=== PATIENT | female | born 1960 | race Two or more races ===

== ENCOUNTER 2018-09-24 00:46 | Emergency (ER) | payer OTHER ==
[~2018-09-24] VITALS: Ht 167.6 cm; Wt 63.5 kg
== END 2018-09-24 06:12 | disposition home or self-care (01) ==
LOC: ER 00:46
DX: R55 Syncope and collapse (principal)

== ENCOUNTER 2018-10-02 09:08 | Outpatient (CLI) | payer OTHER | END 2018-10-02 09:42 | disposition home or self-care (01) | LOC: MRI 09:08 | DX: C71.9 Malignant neoplasm of brain, unspecified (principal); I67.89 Other cerebrovascular disease | CPT/HCPCS: 70553 ==

== ENCOUNTER 2021-09-14 09:47 | Outpatient (CLI) | payer OTHER | END 2021-09-14 09:48 | disposition home or self-care (01) | LOC: MRI 09:47 | PROVIDERS: ATTEND Otolaryngology | DX: M54.2 Cervicalgia (principal) | CPT/HCPCS: 72141 ==

== ENCOUNTER 2022-02-27 13:31 | Outpatient (CLI) | payer OTHER | END 2022-02-27 13:45 | disposition home or self-care (01) | LOC: LAB 13:31 | PROVIDERS: ATTEND Dermatology | DX: D51.3 Other dietary vitamin B12 deficiency anemia (principal); I10 Essential (primary) hypertension; E06.3 Autoimmune thyroiditis ==

== ENCOUNTER 2022-10-09 11:11 | Outpatient (CLI) | payer OTHER | END 2022-10-09 11:44 | disposition home or self-care (01) | LOC: LAB 11:11 | PROVIDERS: ATTEND Internal Medicine Hematology & Oncology | DX: D50.8 Other iron deficiency anemias (principal); R79.9 Abnormal finding of blood chemistry, unspecified; I10 Essential (primary) hypertension; R74.02 Elevation of levels of lactic acid dehydrogenase [LDH]; K76.89 Other specified diseases of liver; C25.9 Malignant neoplasm of pancreas, unspecified; R97.8 Other abnormal tumor markers; C56.9 Malignant neoplasm of unspecified ovary; R97.1 Elevated cancer antigen 125 [CA 125]; R97.0 Elevated carcinoembryonic antigen [CEA]; E55.9 Vitamin D deficiency, unspecified; E03.8 Other specified hypothyroidism; C50.919 Malignant neoplasm of unspecified site of unspecified female breast; D68.8 Other specified coagulation defects; D69.1 Qualitative platelet defects; D51.3 Other dietary vitamin B12 deficiency anemia; F33.9 Major depressive disorder, recurrent, unspecified ==

== ENCOUNTER 2022-10-17 11:22 | Outpatient (CLI) | payer OTHER | END 2022-10-17 11:50 | disposition home or self-care (01) | LOC: MRI 11:22 | PROVIDERS: ATTEND Internal Medicine Rheumatology | DX: M43.10 Spondylolisthesis, site unspecified (principal); M53.86 Other specified dorsopathies, lumbar region | CPT/HCPCS: 72148 ==

== ENCOUNTER → 2022-11-26 | Emergency (ER) | payer OTHER ==
[~2022-11-26] VITALS: Ht 167.6 cm; Wt 68.0 kg
[~2022-11-26] MED LIST: B COMPLEX1 EACH PO; GRALISE600 MG PO
== END | disposition home or self-care (01) ==
LOC: ER 14:31
DX: L03.116 Cellulitis of left lower limb (principal)